=== PATIENT | female | born 1995 | race Hispanic/Latino ===

== ENCOUNTER 2017-08-26 17:38 | Observation (INO) | payer MEDICAID ==
[~2017-08-26] VITALS: Ht 160 cm; Wt 85.0 kg
[~2017-08-26 17:38] MED LIST: BACTRIM DS1 TAB PO; CIPRO500 MG OR; FERROUS SULF325 M1 PO; FLAGYL500 MG OR; MOTRIN600 MG/TAB PO; NORCO1 TA2 PO; PERI-COLACE1 TAB PO; PRE-NATAL PO; PYRIDIUM200 MG PO; REGLAN10 MG OR
[2017-08-26 18:10] LABS: HEMATOCRIT 33.5 % (37.0-47.0); HEMOGLOBIN 10.8 g/dl (12.0-16.0); IMMATURE GRANULOCYTES 0.2 % (0.0-1.0); MEAN CELL VOLUME 80.5 fL CALC (80.0-100.0); MEAN CORPUSCULAR HGB CONC 32.2 g/L CALC (32.0-36.0); NEUT# 5.25 thou/uL (2.00-7.15); RED BLOOD COUNT 4.16 mill/uL (4.20-5.60); RED CELL DISTRI WIDTH 16.1 % (11.5-15.5)
[2017-08-26 18:27] LABS: ALBUMIN 4.4 g/dL (3.2-5.0); ALKALINE PHOSPHATASE 59 u/l (38-126); ANION GAP 16 (6-22 (CALC)); BILIRUBIN, TOTAL 0.8 mg/dL (0.0-1.4); BUN 14 mg/dL (7-17); BUN/CREATININE RATIO 21 (12-20 (CALC)); CALCIUM 9.3 mg/dL (8.4-10.2); CARBON DIOXIDE 22 mmol/l (22-30); CHLORIDE 106 mmol/l (95-108); CREATININE 0.7 mg/dL (0.5-1.0); GFR > 60 ML/MIN (>=60 (CALC)); GFR FOR AFR.AMER. > 60 ML/MIN (>=60 (CALC)); GLUCOSE 100 mg/dL (65-105); POTASSIUM 3.8 mmol/l (3.5-5.1); SGOT/AST 29 u/l (14-36); SGPT/ALT 38 u/l (9-52); SODIUM 140 mmol/l (137-146)
[2017-08-26 18:44] LABS: BETA-HCG, QUANT(RESULT NUMBER) 4646 mIU/mL
[2017-08-26 22:54] VITALS: BP 116/68
[2017-08-26 23:09] VITALS: BP 111/61
[2017-08-26 23:27] VITALS: BP 119/65
[2017-08-26 23:39] VITALS: BP 110/48
[2017-08-27 00:39] VITALS: BP 109/51
[2017-08-27 01:09] VITALS: BP 118/58
[2017-08-27 01:39] VITALS: BP 109/55
[2017-08-27 04:40] VITALS: BP 100/68
[2017-08-27] MEDS ORDERED: LORTAB 5-325 MG1 TAB PO (08:54)
[2017-08-27] MEDS ORDERED: DOXYCYCL HYC100 M4 PO (08:54)
[2017-08-27] MEDS ORDERED: CYTOTEC200 MCG PO (08:55)
== END 2017-08-27 10:46 | disposition home or self-care (01) | DRG 770 ==
LOC: ED 17:38 → MS2 19:30
PROVIDERS: Emergency Medicine; ADMIT Obstetrics & Gynecology; ATTEND Obstetrics & Gynecology
PROC: 10D17ZZ Extraction of Products of Conception, Retained, Via Natural or Artificial Opening (ICD-10-PCS; principal; 2017-08-26)
DX: O03.4 Incomplete spontaneous abortion without complication (principal)